=== PATIENT | male | born 1990 | race African-American/Black ===

== ENCOUNTER 2020-02-20 15:57 | Emergency (ER) | payer OTHER ==
[2020-02-20 16:19] VITALS: BP 127/82; PULSE 76; RESP 18; TEMP 98.4
--- NOTE | 2020-02-20 17:03 | ED ---
Abdominal Pain HPI - General Chief Complaint: Abdominal Pain Stated Complaint: Kidney Pain Time Seen by Provider: 02/20/20 16:07 Source: patient Mode of arrival: ambulatory Limitations: no limitations - History of Present Illness Initial Comments: Patient is a 29-year-old male presenting to the emergency Department with complaints of "kidney pain and lower belly pain" for the last 3 months. Patient states he finally decided to come in because his "kidney was hurting." He denies any fever, chills, nausea, vomiting, any specific area of pain. He de nies any dysuria. He states he does have history of genital herpes but is not currently having outbreak. He states he has some concern for any other sort of STDs. He denies any discharge. He denies any abdominal surgeries. Denies any chest pain or shortness of breath. He has no further complaints at this time. - Related Data Allergies Allergy/AdvReac Type Severity Reaction Status Date / Time No Known Allergies Allergy Verified 02/20/20 16:02 Review of Systems ROS Statement: Those systems with pertinent positive or pertinent negative responses have been documented in the HPI. ROS Other: All systems not noted in ROS Statement are negative. Past Medical History Past Medical History: No Reported History History of Any Multi-Drug Resistant Organisms: None Reported Additional Past Surgical History / Comment(s): jaw surgery Past Psychological History: Anxiety Smoking Status: Current every day smoker Past Alcohol Use History: Occasional Past Drug Use History: None Reported General Exam - General Exam Comments Initial Comments: GENERAL: Patient is well-developed and well-nourished. Patient is nontoxic and in no acute distress. HEAD: Atraumatic, normocephalic. EYES: Pupils equal round and reactive to light, extraocular movements intact, sclera anicteric, conjunctiva are normal. Eyelids were unremarkable. ENT: TMs normal, nares patent, oropharynx clear without exudates. Moist mucous membranes. NECK: Normal range of motion, supple without lymphadenopathy or JVD. LUNGS: Unlabored respirations. Breath sounds clear to auscultation bilaterally and equal. No wheezes rales or rhonchi. HEART: Regular rate and rhythm without murmurs, rubs or gallops. ABDOMEN: Soft, nontender, normoactive bowel sounds. No guarding, no rebound. No masses appreciated. : Deferred MUSCULOSKELETAL: Normal extremities with adequate strength and normal range of motion, no pitting or edema. No clubbing or cyanosis. NEUROLOGICAL: Patient is alert and oriented x 3. Motor and sensory are also intact. Cranial nerves II through XII grossly intact. Symmetrical smile. Normal speech, normal gait. PSYCH: Normal mood, normal affect. SKIN: Warm, Dry, normal turgor, no rashes or lesions noted. Limitations: no limitations Course Vital Signs 02/20/20 15:59 Temperature 98.4 F Pulse Rate 76 Respiratory 18 Rate Blood Pressure 127/82 O2 Sat by Pulse 98 Oximetry Medical Decision Making - Medical Decision Making Patient is a 29-year-old male here for lower abdominal discomfort, kidney pain 3 months. His vital signs are stable. Exam is unremarkable, no abdominal tenderness on palpation. Patient's urine has rare bacteria, 1 WBC, mucus. Given patient's vague complaints, length of symptoms, I will treat for possible gonorrhea or chlamydia. Those tests are pending. Patient is agreement this plan of care. He is stable for discharge. He can follow-up with his PCP. - Lab Data Lab Results 02/20/20 Range/Units 17:07 Urine Color Yellow Urine Appearance Cloudy (Clear) Urine pH 7.5 (5.0-8.0) Ur Specific [place] 1.028 (1.001-1.035) Urine Protein Trace H (Negative) Urine Glucose (UA) Negative (Negative) Urine Ketones Negative (Negative) Urine Blood Negative (Negative) Urine Nitrite Negative (Negative) Urine Bilirubin Negative (Negative) Urine Urobilinogen 4.0 (<2.0) mg/dL Ur Leukocyte Esterase Negative (Negative) Urine RBC 1 (0-5) /hpf Urine WBC 1 (0-5) /hpf Amorphous Sediment Rare H (None) /hpf Urine Bacteria Rare H (None) /hpf Hyaline Casts 1 (0-2) /lpf Urine Mucus Moderate H (None) /hpf Urine Opiates Screen Not Detected (NotDetected) Ur Oxycodone Screen Not Detected (NotDetected) Urine Methadone Screen Not Detected (NotDetected) Ur Propoxyphene Screen Not Detected (NotDetected) Ur Barbiturates Screen Not Detected (NotDetected) U Tricyclic Antidepress Not Detected (NotDetected) Ur Phencyclidine Scrn Not Detected (NotDetected) Ur Amphetamines Screen Not Detected (NotDetected) U Methamphetamines Scrn Not Detected (NotDetected) U Benzodiazepines Scrn Not Detected (NotDetected) Urine Cocaine Screen Not Detected (NotDetected) U Marijuana (THC) Screen Detected H (NotDetected) Disposition Clinical Impression: Suprapubic abdominal pain Disposition: HOME SELF-CARE Condition: Stable Instructions (If sedation given, give patient instructions): Abdominal Pain (ED) Additional Instructions: Please return to the Emergency Department if symptoms worsen or any other concerns. Follow-up with PCP as symptoms persist. Is patient prescribed a controlled substance at d/c from ED?: No Referrals: Nonstaff,Physician [Primary Care Provider] - 1-2 days
[2020-02-20 17:49] LABS: Amorphous Sediment,Urine Rare /hpf; Appearance,Urine Cloudy (Clear); Bacteria,Urine Rare /hpf; Bilirubin,Urine Negative (Negative); Blood,Urine Negative (Negative); Color,Urine Yellow; Glucose,Urine (UA) Negative (Negative); Hyaline Casts,Urine 1 /lpf (0-2); Ketones,Urine Negative (Negative); Leukocyte Esterase,Urine Negative (Negative); Mucus,Urine Moderate /hpf; Nitrite,Urine Negative (Negative); PH, Urine 7.5 (5.0-8.0); Protein,Urine Trace (Negative); RBC,Urine 1 /hpf (0-5); Specific Gravity,Urine 1.028 (1.001-1.035); WBC,Urine 1 /hpf (0-5)
[2020-02-20 17:54] LABS: Amphetamine Screen,Urine Not Detected (NotDetected); Barbiturate Screen,Urine Not Detected (NotDetected); Benzodiazepines Screen,Urine Not Detected (NotDetected); Cocaine Screen,Urine Not Detected (NotDetected); Methadone Screen, Urine Not Detected (NotDetected); Opiate Screen,Urine Not Detected (NotDetected); Oxycodone Screen, Urine Not Detected (NotDetected); Phencyclidine Screen,Urine Not Detected (NotDetected); Tricyclic Antidepressant,Urine Not Detected (NotDetected); Urn Cannabinoid Scrn Detected (NotDetected)
[2020-02-20] MEDS ORDERED: cefTRIAXone 250 MG VIAL IM STA (18:00)
[2020-02-20] MEDS ORDERED: AZITHROMYCIN 250 MG TAB PO STA (18:00)
[2020-02-22 15:53] LABS: C. trachomatis,PCR Negative (Neg,Equiv); Chlamydia trachomatis Source Urine; N. gonorrhoeae,PCR Negative (Neg,Equiv); Neisseria Source Urine
== END 2020-02-20 18:20 | disposition home or self-care (01) ==
LOC: EC 15:57
DX: R10.2 Pelvic and perineal pain (principal); F17.200 Nicotine dependence, unspecified, uncomplicated
CPT/HCPCS: 81001; 87491; 87591; 80306; 96372; 99284; J0696

== ENCOUNTER 2020-04-27 16:21 | Emergency (ER) | payer OTHER ==
[2020-04-27 16:28] VITALS: BP 115/77; PULSE 74; RESP 18; TEMP 97.6
[2020-04-27] MEDS ORDERED: AZITHROMYCIN 500 MG TAB PO STA (16:48)
[2020-04-27] MEDS ORDERED: cefTRIAXone 250 MG VIAL IM STA (16:54)
--- NOTE | 2020-04-27 16:54 | ED ---
Male Urogenital HPI - General Chief complaint: Urogenital Stated complaint: STD check Time Seen by Provider: 04/27/20 16:30 Source: patient Mode of arrival: ambulatory Limitations: no limitations - History of Present Illness Initial comments: 29yo male presenting with cc of concern for STI without symptoms. pt states his girlfriend has "thick creamy discharge" he states he doesnt know if this is is "nut" or not because he states he ejaculates in her daily. he states he cheated on her with another female and his girlfriend wanted him to get STI testing. pt denies penile discharge, pain with urination, frequency or hesitation to urination. denies fevers penile lesion, scrotal swelling, abdominal pain. Patient states he has had rash in his pubes, he states he thinks he might have jock itch. denies noting any infestations. Patient appears well nontoxic on arrival in no acute distress. - Related Data Previous Rx's Medication Instructions Recorded Clotrimazole Cream [Lotrimin Cream] 1 applic TOPICAL BID 7 Days #30 gm 04/27/20 Allergies Allergy/AdvReac Type Severity Reaction Status Date / Time tomato Allergy Unknown Verified 04/27/20 16:25 Review of Systems ROS Statement: Those systems with pertinent positive or pertinent negative responses have been documented in the HPI. ROS Other: All systems not noted in ROS Statement are negative. Past Medical History Past Medical History: No Reported History History of Any Multi-Drug Resistant Organisms: None Reported Past Surgical History: No Surgical Hx Reported Additional Past Surgical History / Comment(s): jaw surgery Past Psychological History: Anxiety Smoking Status: Current every day smoker Past Alcohol Use History: Occasional Past Drug Use History: None Reported General Exam - General Exam Comments Initial Comments: General: The patient is awake and alert, in no distress, and does not appear acutely ill. Eye: Pupils are equal, round and reactive to light, extra-ocular movements are intact. No nystagmus. There is normal conjunctiva bilaterally. No signs of icterus. Cardiovascular: There is a regular rate and rhythm. No murmur, rub or gallop is appreciated. Respiratory: Lungs are clear to auscultation, respirations are non-labored, breath sounds are equal. No wheezes, stridor, rales, or rhonchi. Gastrointestinal: Soft, non-distended, non-tender abdomen without masses or organomegaly noted. There is no rebound or guarding present. : no testicular swelling or pain. no penile lesions. no discharge. pt has an erythematous scaling plaques in groin. no infestation noted in pubix hair Musculoskeletal: Normal ROM, no tenderness. Strength 5/5. Sensation intact. Pulses equal bilaterally 2+. Neurological: A&O x 3. CN II-XII intact grossly, There are no obvious motor or sensory deficits. Coordination appears grossly intact. Speech is normal. Skin: Skin is warm and dry and no rashes or lesions are noted. Psychiatric: Cooperative, appropriate mood & affect, normal judgment. Limitations: no limitations Course Vital Signs 04/27/20 04/27/20 16:25 17:26 Temperature 97.6 F 97.6 F Pulse Rate 74 74 Respiratory 18 18 Rate Blood Pressure 115/77 115/77 O2 Sat by Pulse 99 99 Oximetry Medical Decision Making - Medical Decision Making Swabs pending. pt treated prophylactically. no penile lesions. findings on groin exam consitetn with tinea cruis will treat. discussed safe sex practices pt discharged appearing well. - Lab Data Lab Results 04/27/20 Range/Units 17:02 Chlamydia Source Genital Chlamydia DNA (PCR) Negative (Neg,Equiv) N. gonorrhoeae Source Genital N.gonorrhoeae DNA Probe Negative (Neg,Equiv) Disposition Clinical Impression: Concern about STD in male without diagnosis, Jock itch Disposition: HOME SELF-CARE Condition: Good Instructions (If sedation given, give patient instructions): Safe Sex (ED) Additional Instructions: Please use medication as discussed. Please follow-up with family doctor in the next 2 days. Please return to emergency room if the symptoms increase or worsen or for any other concerns. Prescriptions: Clotrimazole Cream [Lotrimin Cream] 1 applic TOPICAL BID 7 Days #30 gm Is patient prescribed a controlled substance at d/c from ED?: No Referrals: Nonstaff,Physician [Primary Care Provider] - 1-2 days Time of Disposition: 16:57
[2020-04-28 14:53] LABS: C. trachomatis,PCR Negative (Neg,Equiv); Chlamydia trachomatis Source Genital; N. gonorrhoeae,PCR Negative (Neg,Equiv); Neisseria Source Genital
== END 2020-04-27 17:27 | disposition home or self-care (01) ==
LOC: EC 16:21
DX: B35.6 Tinea cruris (principal); Z71.1 Person with feared health complaint in whom no diagnosis is made; F17.200 Nicotine dependence, unspecified, uncomplicated; Z91.018 Allergy to other foods
CPT/HCPCS: 87491; 87591; 87070; 87661; 99283; 96372; J0696